=== PATIENT | female | born 1930 | race Caucasian/White ===

== ENCOUNTER 2021-08-23 08:09 | Inpatient (IN) | payer OTHER ==
[2021-08-20 15:38] LABS: BASOPHILS # (AUTO) 0.1 K/uL (0.0-0.2); BASOPHILS % (AUTO) 0.7 % (0.0-2.0); EOSINOPHILS # (AUTO) 0.3 K/uL (0.0-0.4); EOSINOPHILS % (AUTO) 3.9 % (0.0-4.0); HEMOGLOBIN 9.4 g/dL (12.0-16.0); LYMPHOCYTES # (AUTO) 1.2 K/uL (1.0-5.5); MEAN CORPUSCULAR HEMOGLOBIN 24 pg (27-31); MEAN CORPUSCULAR HGB CONC 31 % (32-36); MEAN CORPUSCULAR VOLUME 76 fL (79.0-98.0); MONOCYTES # (AUTO) 0.9 K/uL (0.0-1.0); MONOCYTES % (AUTO) 11.4 % (1.7-9.3); NEUTROPHILS # (AUTO) 5.6 K/uL (1.8-7.7); PLATELET COUNT (AUTO) 362 K/uL (130-430); RED BLOOD CELL COUNT(AUTO) 3.95 MIL/uL (4.2-6.2); RED CELL DISTRIBUTION WIDTH 19.7 % (9.0-15.0); WHITE BLOOD COUNT (AUTO) 8.1 K/uL (4.8-10.8)
[2021-08-20 16:04] LABS: PROTHROMBIN TIME 10.9 SECS (9.5-12.5)
[2021-08-20 16:37] LABS: ALANINE AMINOTRANSFERASE 12 U/L (12-78); ANION GAP 7 (5-15); ASPARTATE AMINOTRANSFERASE 9 U/L (10-37); CALCIUM 8.2 mg/dL (8.4-11.0); CHLORIDE 106 mmol/L (98-107); CREATININE 1.67 mg/dL (0.55-1.30); GLUCOSE 76 mg/dL (70-99); POTASSIUM 4.5 mmol/L (3.5-5.1); SODIUM SERUM 139 mmol/L (136-145); TOTAL BILIRUBIN 0.1 mg/dL (0.0-1.0); UREA NITROGEN, BLOOD 34 mg/dL (8-21)
[~2021-08-23] VITALS: Ht 160 cm; Wt 54.0 kg
[2021-08-23 10:05] LABS: BILIRUBIN,URINE NEGATIVE (NEGATIVE); BLOOD, URINE 1+ (NEGATIVE); CLARITY/URINE CLOUDY (CLEAR); COLOR,URINE YELLOW (YELLOW); GLUCOSE,URINE NEGATIVE (NEGATIVE); KETONES,URINE NEGATIVE (NEGATIVE); LEUKOCYTE ESTERASE ,URINE 3+ (NEGATIVE); NITRITE, URINE POSITIVE (NEGATIVE); PH,URINE 6.5 (5.0-8.0); PROTEIN URINE TRACE (NEGATIVE); UROBILINOGEN,URINE 0.2 (0.2-1.0)
[2021-08-23 10:27] LABS: BACTERIA,URINE MANY /HPF (None Seen); WBC,URINE 20-50 /HPF (0-3)
[2021-08-23] MEDS ORDERED: BUSP5TAB3 PO (18:58)
[2021-08-23] MEDS ORDERED: LIP40 PO (18:58)
[2021-08-23] MEDS ORDERED: METO-290 PO (18:58)
[2021-08-23] MEDS ORDERED: GALA8TAB PO (18:58)
[2021-08-23] MEDS ORDERED: DOCU-144 PO (18:58)
[2021-08-23] MEDS ORDERED: RIVA20TA PO (18:58)
[2021-08-23] MEDS ORDERED: HYDR-3917 PO (18:58)
[2021-08-23] MEDS ORDERED: HYDR-3610 PO (18:58)
[2021-08-23] MEDS ORDERED: ROPI12TA2 PO (18:58)
[2021-08-23] MEDS ORDERED: LOSA25TA3 PO (18:58)
[2021-08-23] MEDS ORDERED: FAMO40TA7 PO (18:58)
[2021-08-23] MEDS ORDERED: ONDA4TAB55 PO (18:58)
[2021-08-23] MEDS ORDERED: NS 1000 ML IV.SOLN IV ONE (19:10)
[2021-08-23] MEDS ORDERED: fentaNYL CITRATE/PF 100 MCG/2 ML AMP ONE ×2 (19:10→20:48)
[2021-08-23] MEDS ORDERED: SEVOFLURANE 15 MIN GAS INH ONE (19:10)
[2021-08-23] MEDS ORDERED: NS IRRIG SOLN 1000 ML IR ONE (19:10)
[2021-08-23] MEDS ORDERED: PROPOFOL 200MG/ 20ML VIAL (DIPRIVAN) IV ONE (19:10)
[2021-08-23] MEDS ORDERED: GENTAMICIN 80 mg/ NS 50 mL IVPB IV ONE (19:10)
[2021-08-23] MEDS ORDERED: BUPIVACAINE /EPINEPHRINE/PF 0.25% 30 ML VIAL INJ ONE (19:10)
[2021-08-23] MEDS ORDERED: VORT20TA PO (19:12)
[2021-08-23] MEDS ORDERED: QUIN324C PO (19:13)
[2021-08-23] MEDS ORDERED: ONDANSETRON HCL 4 MG/2 ML VIAL IVP PRN (19:45)
[2021-08-23] MEDS ORDERED: fentaNYL CITRATE/PF 100 MCG/2 ML AMP IVP PRN ×2 (19:45)
[2021-08-23] MEDS ORDERED: METOCLOPRAMIDE HCL 10 MG/2 ML VIAL IVP PRN (19:45)
[2021-08-23] MEDS ORDERED: MORPHINE 2 MG/ML INJ. SYRINGE ONE (20:58)
[2021-08-23] MEDS: MORPHINE 2 MG/ML INJ. SYRINGE IVP PRN (21:02)
[2021-08-23] MEDS ORDERED: traMADol HCL HCL 50 MG TABLET (ULTRAM) PO PRN (21:15)
[2021-08-23] MEDS ORDERED: MIDAZOLAM HCL 2 MG/2 ML VIAL (VERSED) ONE (21:24)
[2021-08-23 21:35] VITALS: BP_SYST 132
--- NOTE | 2021-08-23 21:35 | NUR ---
ADMISSION NOTES FROM RECOVERY/OR PT RECEIVED TO ROOM 105A VIA BED STATUS POST RIGHT ARTHROPLASTY RIGHT SHOULDER. LR TO GRAVITY FLOW 20GA LAC. RIGHT SHOULDER GAUZE DRESSING WITH PALE PINK SHADOW DRAINAGE COVERED WITH TEGADERM. CIRCULATION SENSATION AND MOVEMENT INTACT IN RIGHT FINGERS AND WRIST. MOANING UPON MOVEMENT STATED DISCOMFORT TO LEFT UPPER ARM UPON CUFF INFLATION FOR B/P CHECK. SCREAMING DEMANDING CUFF BE TAKEN OFF. PT TEACHING CONCERNING IMPORTANCE OF GETTING A BASELINE FOR VS. "YOU WILL NOT TOUCH ME AGAIN...I HAVE CONTROL OF MY BODY...I WILL REPORT YOU...WHAT IS YOUR NAME?" CHARGE NURSE NOTIFIED. ASKED IF NEEDED PAIN MED. "I WANT NOTHING FROM YOU...GET OUT AND CUT OUT THE LIGHT NOW" REFUSED ICE-PACK. SCREAMED WHEN GENTLY PLACED NEAR OP SITE. NO REDNESS OR SWELLING VISIBLE. BED IN LOWEST POSITION AND CALL LIGHT WITHIN EASY REACH OF LEFT HAND. WHEELS LOCKED. HOB @ 60 DEGREES. LIGHTS OUT PER REQUEST. ALLOW TO REST AND COME BACK LATER TO ATTEMPT ADMISSION PROCESS.
[2021-08-23] MEDS ORDERED: MIDAZOLAM HCL 2 MG/2 ML VIAL (VERSED) IVP SCH (22:15)
--- NOTE | 2021-08-24 00:30 | NUR ---
PT CONTINUES TO REFUSE ALL CARE OR TO ANSWER PRACTICALLY ANY QUESTIONS. STAFF SWITCHED OUT. SAME RESULTS. BELONGINGS ASSESSED. PT DEMANDED I NOT TOUCH PERSONAL ARTICLES,"GET YOUR DARN HANDS OFF MY THINGS. THERE IS NOTHING THERE FOR YOU...I 'M REPORTING YOU...YOU ARE DOING THESE THINGS TO AGGRAVATE ME." CHARGE NURSE ATTEMPTED TO NO AVAIL. AGAIN REFUSED VITAL SIGNS. NEURO-VASCULAR CHECK TO RUE. RIGHT FINGERS MOVE WELL, FINGERS TRISHA WELL WITH CAP REFILL <3SEC. PT SCREAMED WHEN TOUCHED. NOTED RIGHT SHOULDER DRESSING WITH PALE PINK DRAINAGE INCREASED. ATTEMPTED TO REINFORCE DRESSING WITH PT TEACHING FIRST. "DON'T YOU DARE PUT ANYTHING ON ME...GET OUT OF HERE NOW! ALLOW TO REST. LIGHTS OUT.
[2021-08-24] MEDS: DOCUSATE SODIUM 100 MG CAPSULE PO SCH ×2 (08:29→21:35)
[2021-08-24] MEDS: MORPHINE 2 MG/ML INJ. SYRINGE IVP PRN (08:34)
[2021-08-24] MEDS: CEFAZOLIN 1 GM IVPB PREMIX 50 ML IV SCH ×2 (09:00→16:43)
[2021-08-24 09:27] VITALS: BP_SYST 137
[2021-08-24 09:29] VITALS: BP_SYST 137
[2021-08-24] MEDS: ENOXAPARIN SODIUM 30 MG/0.3 ML SYRINGE SUBCUT SCH (10:09)
[2021-08-24 12:25] VITALS: BP_SYST 123
--- NOTE | 2021-08-24 13:05 | NUR ---
Patient is received. Skin check done. Patient is c/o of pain was given morphine. Morning medication given. Will monitor.
[2021-08-24] MEDS: HYDROcodone/ACETAMIN 5-325 MG TAB (NORCO/ VICODIN) PO PRN (13:30)
[2021-08-24] MEDS ORDERED: HYDROcodone/ACETAMIN 10-325 MG TAB PO PRN (14:00)
[2021-08-24] MEDS: HYDROmorphone 2 MG/ML VIAL IVP PRN ×2 (14:47→17:25)
[2021-08-24] MEDS: ONDANSETRON 4 MG ODT TAB PO SCH ×2 (15:00→21:34)
[2021-08-24 16:30] VITALS: BP_SYST 130
[2021-08-24 16:41] VITALS: BP_SYST 133
[2021-08-24 20:10] VITALS: BP_SYST 106
--- NOTE | 2021-08-24 20:10 | NUR ---
Opening notes Pt asleep, easily awakens, no s/s distress noted. R. shoulder dressing with light pink drainage intact. Neurovascular check intact, pt able to wiggle fingers, right radial pulse present. Call light within reach. Lonnie SCDs on. To monitor.
[2021-08-24] MEDS: busPIRone HCL 5 MG TABLET PO SCH (21:34)
[2021-08-25 00:39] VITALS: BP_SYST 123
--- NOTE | 2021-08-25 02:20 | NUR ---
Rounds/O2 sat 90% Pt asleep, easily awakens, O2 sat 90-91% on room air (pt is a mouth breather). Placed pt on 2L via NC, O2 sat increased to 93-94%. R. hand, fingers circulation intact. Call light within reach. To monitor.
[2021-08-25] MEDS: HYDROmorphone 2 MG/ML VIAL IVP PRN (04:26)
--- NOTE | 2021-08-25 04:50 | NUR ---
Pain/Refuse IV start Pt alert, awake, pt crying and c/o severe pain R. shoulder after being cleaned. Dilaudid IV drawn. Pt IV L.AC not patent. Attempted to restart new IV on L. forearm but pt did not tolerate pain from IV restart and refused new IV placed. Dilaudid 2mg wasted with another RN. Pt requested pain pill instead. Medicated with Ultram 50mg PO instead. Educated pt that it will take about 30 mins to work, pt agreeable.
--- NOTE | 2021-08-25 07:33 | NUR ---
Received patient in bed resting comfortably, AAOX2. No s/sx pain or discomfort. Respirations are non-labored on 2LPM. Skin is clean,warm and dry to touch. no IV access is patent, patient decline re-insertion, nurse will attempt later during shift. Bed is locked in lowest position, call light in reach. Nurse will continue care and monitor for changes in status.
[2021-08-25] MEDS: ENOXAPARIN SODIUM 30 MG/0.3 ML SYRINGE SUBCUT SCH (09:00)
[2021-08-25] MEDS: ONDANSETRON 4 MG ODT TAB PO SCH ×3 (09:07→21:17)
[2021-08-25] MEDS: busPIRone HCL 5 MG TABLET PO SCH ×2 (09:07→21:17)
[2021-08-25] MEDS: DOCUSATE SODIUM 100 MG CAPSULE PO SCH ×3 (09:07→21:17)
[2021-08-25] MEDS: FAMOTIDINE 20 MG TABLET PO SCH (09:07)
[2021-08-25 11:05] VITALS: BP_SYST 118
--- NOTE | 2021-08-25 11:33 | NUR ---
Patient in bed resting comfortably. No s/sx pain or discomfort. Respirations are non-labored. Skin is clean,warm and dry to touch. IV access is patent, dry and secure, no s/sx of redness or swelling observed. Patient medication compliant, no s/sx of adverse affects reported or observed. Bed is locked in lowest position, call light in reach. Nurse will continue care and monitor for changes in status.
[2021-08-25 16:31] VITALS: BP_SYST 117
--- NOTE | 2021-08-25 18:52 | NUR ---
Patient in bed resting comfortably. No s/sx pain or discomfort. Respirations are non-labored. Skin is clean,warm and dry to touch. IV access is patent, dry and secure, no s/sx of redness or swelling observed. Patient medication compliant, no s/sx of adverse affects reported or observed. Bed is locked in lowest position, call light in reach. Nurse will endorse patient to night cleaner nurse for continue care.
[2021-08-25 20:00] VITALS: BP_SYST 109
--- NOTE | 2021-08-25 20:00 | NUR ---
Opening notes Pt AAOx3, talking to her roomate. VSS, no c/o pain at this time. R. shoulder dressing intact. Pt refused SCDs on. Call light within reach. Bed low, locked, siderails up x3. To monitor.
--- NOTE | 2021-08-25 21:25 | NUR ---
Colostomy care Left colostomy bag changed. Stoma pink. Brown formed stools noted. Pt tolerated well. To monitor.
[2021-08-26] MEDS: HYDROcodone/ACETAMIN 5-325 MG TAB (NORCO/ VICODIN) PO PRN ×2 (05:30→22:35)
--- NOTE | 2021-08-26 05:30 | NUR ---
Closing notes/Pain Pt alert, awake, no s/s distress noted. Pt states she wants to go home. Educated pt when Dr. Henry make round he will decide. Pt c/o pain 5/10 R. shoulder. Medicated with [place] 1 tab PO as needed. Pt requested for bedpan and pt voided. Call light within reach. Bed low, locked, siderails up x3, alarm on. To endorse to AM nurse.
[2021-08-26] MEDS: ENOXAPARIN SODIUM 30 MG/0.3 ML SYRINGE SUBCUT SCH (07:44)
[2021-08-26] MEDS: FAMOTIDINE 20 MG TABLET PO SCH (08:35)
[2021-08-26] MEDS: busPIRone HCL 5 MG TABLET PO SCH ×2 (08:35→21:19)
[2021-08-26] MEDS: DOCUSATE SODIUM 100 MG CAPSULE PO SCH ×3 (08:36→21:19)
[2021-08-26] MEDS: ONDANSETRON 4 MG ODT TAB PO SCH ×3 (08:36→21:18)
--- NOTE | 2021-08-26 09:25 | NUR ---
Disposition code 01
[2021-08-26 10:08] VITALS: BP_SYST 111
--- NOTE | 2021-08-26 11:17 | NUR ---
Patient in bed resting comfortably. No s/sx pain or discomfort. Respirations are non-labored. Skin is clean,warm and dry to touch. Patient medication compliant, no s/sx of adverse affects reported or observed. Bed is locked in lowest position, call light in reach. Nurse will continue care and monitor for changes in status.
--- NOTE | 2021-08-26 11:17 | NUR ---
Patient in bed resting comfortably. No s/sx pain or discomfort. Respirations are non-labored. Skin is clean,warm and dry to t. Patient medication compliant, no s/sx of adverse affects reported or observed. Bed is locked in lowest position, call light in reach. Nurse will continue care and monitor for changes in status.
[2021-08-26 11:25] VITALS: BP_SYST 107
--- NOTE | 2021-08-26 15:58 | NUR ---
Patient in bed resting comfortably. No s/sx pain or discomfort. Respirations are non-labored. Skin is clean,warm and dry to touch. Bed is locked in lowest position, call light in reach. Nurse will continue care and monitor for changes in status.
[2021-08-26 16:02] VITALS: BP_SYST 119
--- NOTE | 2021-08-26 18:13 | NUR ---
PT'S CONSERVATOR DEANNA JOSEPH #[phone] CALLED BACK AND INFORMED HER THAT PT HAD A FALL AND SUSTAINE SOME SKIN TEAR ON BOTH UPPER ARM. TOLD HER THAT I AM CALLING THE ATTENDING DOCTOR TO MAKE HIM AWARE AND CHECK FOR ANY NEW ORDERS.
--- NOTE | 2021-08-26 18:57 | NUR ---
PAGED DR. FIGUEROA I SPOKE TO ESE BROWN
[2021-08-26 20:01] VITALS: BP_SYST 144
--- NOTE | 2021-08-26 21:00 | NUR ---
PT REFUSING IV ACCESS.
[2021-08-27 01:00] VITALS: BP_SYST 93
[2021-08-27] MEDS: ONDANSETRON 4 MG ODT TAB PO SCH ×3 (12:05→21:03)
[2021-08-27] MEDS: DOCUSATE SODIUM 100 MG CAPSULE PO SCH ×2 (12:05→21:03)
[2021-08-27] MEDS: FAMOTIDINE 20 MG TABLET PO SCH (12:06)
[2021-08-27] MEDS: busPIRone HCL 5 MG TABLET PO SCH ×2 (12:08→21:03)
[2021-08-27] MEDS: ENOXAPARIN SODIUM 30 MG/0.3 ML SYRINGE SUBCUT SCH (12:09)
[2021-08-27] MEDS: HYDROcodone/ACETAMIN 5-325 MG TAB (NORCO/ VICODIN) PO PRN ×2 (12:15→16:29)
[2021-08-27 12:34] VITALS: BP_SYST 110
[2021-08-27 15:48] VITALS: BP_SYST 120
[2021-08-27] MEDS ORDERED: MILK OF MAGNESIA 30 ML UDC PO PRN (16:00)
[2021-08-27 19:00] VITALS: BP_SYST 124
--- NOTE | 2021-08-27 19:15 | NUR ---
change of shift.pt.presents quiescent affect;calm,resting.pt.absent iv access.general status stable.respiratory status stable;unlabored@room air.call light/telephone w/in access of the pt. Addendum: 08/28/21 at 0305 by Raymon Valderrama RN pt.presents colostomy.location;abdomen;llq.intact.
[2021-08-27 20:00] VITALS: BP_SYST 124
--- NOTE | 2021-08-27 20:00 | NUR ---
pt.assessed.v/s assessed values wnl.per flacc pain mgx pt.absent facial .grimaces/body posturing.pt.assessed for cleanliness. pt.repositioned.no requests posited@this hour.call light/telephone placed w/in access of the pt.colostomy intact.
--- NOTE | 2021-08-27 21:00 | NUR ---
2100p medications administered.pt.,capable to ingest the po medications w/out difficulty.no c/o pain,nausea. no requests posited@this hour.call light/telephone placed w/in access of the pt.
--- NOTE | 2021-08-27 22:00 | NUR ---
pt.assessed.pt.presents quiescent affect;calm,somnolent.per flacc pain mgx pt.absent facial grimaces/body posturing. pt.assessed for cleanliness.pt.repositioned.colostomy intact.call light/telephone placed w/in access of the pt.
--- NOTE | 2021-08-28 | NUR ---
pt.assessed.v/s assessed values wnl.no c/o pain,nausea.pt.assessed for cleanliness.pt.repositioned.colostomy intact. call light/telephone placed w/in access of the pt.
[2021-08-28 00:06] VITALS: BP_SYST 119
--- NOTE | 2021-08-28 02:00 | NUR ---
pt.assessed.quiescent,somnolent.per flacc pain mgx pt.absent facial grimaCES/BODY posturing.PT.ASSessed FOR cleanliness. PT.REpositioned.CALL LIGHT/TEL[employer]One PlaCEd W/in ACcESs OF THe PT.
--- NOTE | 2021-08-28 04:00 | NUR ---
pt.assessed.pt.assessed for cleanliness.pt.cleaned/repositioned.no c/o pain,nausea.pt.requested blankets;warmed provided. call light/telephone placed w/in access of the pt.
--- NOTE | 2021-08-28 06:30 | NUR ---
p.assessed.pt.quiescent;somnolent.per flacc pain mgx pt.absent facial grimaces/body posturing.pt.assessed for cleanliness. pt.repositioned.colostomy attended to.call light/telephone placed w/in access of the pt.
[2021-08-28] MEDS: ONDANSETRON 4 MG ODT TAB PO SCH ×3 (10:57→21:21)
[2021-08-28] MEDS: busPIRone HCL 5 MG TABLET PO SCH ×2 (10:57→21:21)
[2021-08-28] MEDS: FAMOTIDINE 20 MG TABLET PO SCH (10:57)
[2021-08-28] MEDS: DOCUSATE SODIUM 100 MG CAPSULE PO SCH ×2 (10:57→21:21)
[2021-08-28] MEDS: ENOXAPARIN SODIUM 30 MG/0.3 ML SYRINGE SUBCUT SCH (10:58)
--- NOTE | 2021-08-28 13:28 | NUR ---
Discharge Planning: DCP arranged transport with [facility] to [facility] [phone] Rm 100A. DCP made CM and nurse aware and patient packet taken to nurse station.
[2021-08-28] MEDS: HYDROcodone/ACETAMIN 5-325 MG TAB (NORCO/ VICODIN) PO PRN (14:34)
--- NOTE | 2021-08-28 16:24 | NUR ---
Attempted PT visit, pt refused and states she can't do anything and began to become upset and irritable, despite multiple attempts to encourage participation in PT. RN made aware.
--- NOTE | 2021-08-28 18:30 | NUR ---
Received a call from [facility], spoke to Kamille, she said the new ETA is [phone].
--- NOTE | 2021-08-28 19:00 | NUR ---
Miss Chow has been assessed as indicated. She willbe DC to [facility] today. She is awaiting draft roller picker at this time. She has no IV access. Her daughter Lenka has taken her personal rollator walker home. Lenka is aware and compliant with the plan to DC to [facility] she states that she has been there several times in the past with the most recent visit in June if this year. Miss Chow is aware and compliant with the plan to DC to [facility]. She was seen by Dr Henry today and the original surgical dressing was remove and replaced with 2 bandages. The site was clean dry and intact. there was no drainage no redness cool to touch and had no odor. Report was called to Chelita Lainez LVN. She is to go to room 106A per Chelita the ambulance company is [facility] . Miss Chow is presently resting quietly with no s/s of distress or discomfort
[2021-08-28 19:07] VITALS: BP_SYST 121
--- NOTE | 2021-08-28 20:17 | NUR ---
Follow up call made to [facility], spoke to rex Simental ETA is [phone]
[2021-08-28 21:30] VITALS: BP_SYST 141
--- NOTE | 2021-08-28 22:00 | NUR ---
pt.transferred to [facility] in stable status.v/s assessed values wnl.no c/o pain,nausea.pt's pertenances accounted for.pt's dtr was apprised of the pt's transfer.no c/o pain,nausea.day shift;bird ochoa;rn conveyed pt's report/data.
== END 2021-08-28 21:45 | DRG 511 ==
LOC: SDS 08:09 → SMU 08:10 → SDS 08-25 21:00 → SMU 08-25 21:15
PROVIDERS: ADMIT Orthopaedic Surgery; ATTEND Orthopaedic Surgery
PROC: 0RNJ0ZZ Release Right Shoulder Joint, Open Approach (ICD-10-PCS; principal; 2021-08-26)
DX: M75.101 Unspecified rotator cuff tear or rupture of right shoulder, not specified as traumatic (principal); N39.0 Urinary tract infection, site not specified; M19.011 Primary osteoarthritis, right shoulder; I12.9 Hypertensive chronic kidney disease with stage 1 through stage 4 chronic kidney disease, or unspecified chronic kidney disease; D63.8 Anemia in other chronic diseases classified elsewhere; F02.80 Dementia in other diseases classified elsewhere, unspecified severity, without behavioral disturbance, psychotic disturbance, mood disturbance, and anxiety; E03.9 Hypothyroidism, unspecified; F32.9 Major depressive disorder, single episode, unspecified; Z20.822 Contact with and (suspected) exposure to COVID-19; N18.30 Chronic kidney disease, stage 3 unspecified; G89.29 Other chronic pain; G30.9 Alzheimer's disease, unspecified; Z79.01 Long term (current) use of anticoagulants; Z86.711 Personal history of pulmonary embolism; Z86.718 Personal history of other venous thrombosis and embolism; Z87.891 Personal history of nicotine dependence; Z93.3 Colostomy status
CPT/HCPCS: 36415; 71046-TC; 80053; 81000; 85025; 85610-TC; 85730-TC; 87086; 93005; C1713; J0690; J1170; J1580; J1650; J2270; J2405; J2704; J3010; J3465; J3490; J7030; Q0162; U0003